=== PATIENT | female | born 1950 | race Hispanic/Latino ===

== ENCOUNTER 2024-11-03 08:32 | Observation (INO) | payer MEDICARE ==
[2024-11-03] VITALS (21 sets, daily range): BP systolic 139–182; BP diastolic 48–78; PULSE 46–66; RESP 14–18; TEMP 96.9–98.1; O2SAT 99
[~2024-11-03] VITALS: Ht 167.6 cm; Wt 98.4 kg
[~2024-11-03 08:32] MED LIST: ASPI-449 PO; GLIM4TAB36 PO; HYDR12.54 PO; METF-446 PO; PIOG45TA64 PO
[2024-11-03 09:22] LABS: BASOPHILS # (AUTO) 0.03 K/uL (0.00-0.20); BASOPHILS % (AUTO) 0.4 % (0.0-5.0); EOSINOPHILS # (AUTO) 0.19 K/uL (0.00-0.70); EOSINOPHILS % (AUTO) 2.6 % (0.0-8.0); HEMATOCRIT 29.8 % (36-48); IMMATURE GRANULOCYTE ABSOLUTE 0.05 K/uL (0-1); LYMPHOCYTES # (AUTO) 1.5 K/uL (1.0-4.8); MEAN CORPUSCULAR HEMOGLOBIN 26.1 pg (27.0-33.0); MEAN CORPUSCULAR HGB CONC 32.6 g/dL (32.0-36.0); MEAN CORPUSCULAR VOLUME 80.3 fL (79-99); MONOCYTES # (AUTO) 0.5 K/uL (0.1-1.0); MONOCYTES % (AUTO) 6.8 % (3.0-13.0); NEUTROPHILS # (AUTO) 5.1 K/uL (1.8-7.7); NEUTROPHILS % (AUTO) 69.5 % (40.0-77.0); PLATELET COUNT (AUTO) 434 K/uL (130-400); RED BLOOD CELL COUNT(AUTO) 3.71 MIL/uL (4.00-5.50); RED CELL DISTRIBUTION WIDTH 17.3 % (11.0-15.5); WHITE BLOOD COUNT (AUTO) 7.3 K/uL (4.8-10.8)
[2024-11-03 09:30] LABS: CREATININE 0.7 mg/dL (0.5-1.0); POTASSIUM 3.9 mmol/L (3.5-5.1)
--- NOTE | 2024-11-03 09:51 | EKG ---
[facility] Test Date: 2024-11-03 Test Time: 09:13:59 Pat Name: SHERYL DE SOUZA Department: [facility] Room: [facility] Gender: F Sign Poster: [id number] : 1950 Requested By: KAYLI NAVARRETE Order Number: [id number] Reading MD: Shayne Lantigua Measurements Intervals [place] Rate: 68 P: 53 AK: 221 QRS: 32 QRSD: 140 T: 4 QT: 451 QTc: 482 Interpretive Statements Sinus rhythm Prolonged AK interval Right bundle branch block No previous ECG available for comparison Electronically Signed On 11-03-2024 18:13:51 CDT by Shayne Lantigua Please click the below link to view image of tracing.
[2024-11-03] MEDS: 0.9%NACL 1000ML 1,000 ML IV ONE (10:57)
[2024-11-03] MEDS: ceFAZolin SODIUM 2 GM VIAL ONE (10:57)
[2024-11-03] MEDS ORDERED: FOLIC ACID PO (11:33)
[2024-11-03] MEDS ORDERED: ALLO100T PO (11:33)
[2024-11-03] MEDS ORDERED: FERS325 PO (11:33)
[2024-11-03] MEDS ORDERED: CYAN-37 PO (11:33)
[2024-11-03] MEDS ORDERED: CHOL100046 PO (11:33)
[2024-11-03] MEDS ORDERED: LIDOCAINE PF 100MG/5ML (2%) SYRINGE 5ML ONE (14:21)
[2024-11-03] MEDS ORDERED: dexaMETHasone SOD PHOSPHATE 10MG/ML 1ML VIAL ONE (14:21)
[2024-11-03] MEDS ORDERED: ondanSETRON 4MG INJ ONE (14:21)
[2024-11-03] MEDS ORDERED: FENTanyl CITRate PF 50 MCG/1 ML 2ML VIAL ONE ×3 (14:22→19:24)
[2024-11-03] MEDS ORDERED: NEOSTIGMINE METHYLSULFATE 1MG/ML IV ONE ×2 (14:22→19:24)
[2024-11-03] MEDS ORDERED: proPOFol 10 MG/ML 20ML VIAL IV ONE (14:22)
[2024-11-03] MEDS ORDERED: rocuRONium bROMide 10MG/1ML 5ML VL ONE (14:22)
[2024-11-03] MEDS ORDERED: SUCCINYLCHOLINE CHLORIDE 20 MG/ML 10 ML VIAL ONE (14:22)
[2024-11-03] MEDS ORDERED: GLYCOPYRROLATE 0.2 MG/ML 5 ML VIAL ONE ×2 (14:22→19:24)
[2024-11-03] MEDS ORDERED: MIDAZOLAM HCL 1 MG/ML 2ML VIAL ONE (14:23)
[2024-11-03] MEDS ORDERED: ROPivacaine 0.5% 5MG/ML 30ML ONE (14:24)
[2024-11-03] MEDS ORDERED: ceFAZolin SODIUM 1 GM VIAL ONE (14:32)
[2024-11-03] MEDS ORDERED: phenylEPHRINE HCL 10 MG/ML 1ML VIAL IV ONE (14:50)
[2024-11-03] MEDS: ceFAZolin SODIUM 2 GM VIAL IVPB ONE (16:38)
[2024-11-03] MEDS ORDERED: ePHEDrine SULFate 50 MG/ML AMPULE ONE (16:52)
[2024-11-03] MEDS ORDERED: TRANEXAMIC ACID 1000MG/10ML ONE (17:03)
[2024-11-03] MEDS ORDERED: TEMAZepam 15 MG CAPSULE PO PRN (19:30)
[2024-11-03] MEDS ORDERED: DiphenhydrAMINE HCL 50 MG/ML VIAL IVP PRN (19:30)
[2024-11-03] MEDS ORDERED: FERROUS FUMARATE 324 MG TABLET PO PRN (19:30)
[2024-11-03] MEDS ORDERED: HYDROcodone/APAP 5/325 1 TAB TABLET PO PRN (19:30)
[2024-11-03] MEDS ORDERED: DiphenhydrAMINE HCL 25 MG CAPSULE PO PRN (19:30)
[2024-11-03] MEDS: acetaMINOPHEN 100 ML ONE (19:48)
--- NOTE | 2024-11-03 19:48 | OP ---
Operative Note: DATE OF PROCEDURE: 11/03/24 SURGEON: JUDE LANE MD MARINE ENGINEERING TECHNICIANS: [Nadira Weston CFA] ANESTHESIA: [General anesthesia] ANESTHESIOLOGIST/TRAINMASTER: [Josef Bender CRNA] PREOPERATIVE DIAGNOSIS: [History comminuted bimalleolar fracture left ankle with secondary fracture blisters and skin necrosis] POSTOPERATIVE DIAGNOSIS: [Same] IMPLANTS: [DE PUY SYNTHES. Locking lateral malleolar plate with locking and nonlocking screws. Joint sparing external fixator] PROCEDURE: [Open reduction internal fixation lateral malleolus fracture. Failed attempt of percutaneous pin fixation of medial malleolus fracture. Placement of the joint sparing external fixator] ESTIMATED BLOOD LOSS: [80 mL] INDICATIONS: [The patient is a 74-year-old female with severe diabetic neuropathy that sustained in a fall several weeks ago and after ambulating for two days finally noticed a deformity of the ankle reason why she came to the hospital and was found to have an ankle fracture, displaced with subluxation. I was consulted and saw that the patient had already fracture blisters in both sides of the ankle and for this reason she was splinted and sent to a assisted for re-evaluation later on. On follow-up it was noted that some of the b listers have healed but some new ones appeared and there was an area of skin necrosis in the medial malleolar area. The patient was brought to the operating room today for possible open reduction internal fixation of trimalleolar fracture and placement of joint sparing external fixator. The procedure was explained to the patient and family, risks involved, benefits and possible c omplications and she has agreed to sign the consent form] DESCRIPTION OF PROCEDURE: [After adequate general anesthesia was achieved the patient's left lower extremity was prepped and draped in the usual manner previous cement of the tourniquet in the proximal thigh. The extremity was elevated and exsanguinated with an Esmarch bandage and the tourniquet was inflated to 350 mmHg the Esmarch band being removed. Evaluation of the ankle revealed that the patient had all the fracture blisters in the lateral aspect completely heal and in the medial aspect the blisters were healed but there was an area of necrosis in the medial malleolar area which involved a proximally 2 x 1-1/2 inches and proximal to it there was an area of healing skin with a exposed dermis healing adequately. At this point an incision was carried down the lateral aspect of the medial malleolus in a longitudinal manner and immediately we noted that the patient had a significant venous tourniquet for this reason the tourniquet was deflated. We proceeded the operation with the tourniquet and the incision was carried down to the bone opened in the fascia of the peroneal tendons muscles and this were dissected free from the distal fibula shaft. Retractors were applied and we proceeded to evaluate the fracture which was segmental and comminuted and we proceeded 1st to realign the bones and secured it with a bone clamp and once we had an adequate alignment we proceeded to apply a lateral malleolus locking plate eight hole length and after secured with a bone clamp we proceeded then to apply 2.7 locking screws and cortical screws proximally and of the malleolus we used a small locking screws, 2.0 in multiple areas obtain adequate fixation. In the middle section where there was a segmental defect we proceeded to applied through oval holes in the plate two cortical screws to provide an adequate fixation. X-rays taken revealed that the reduction has been adequate restarting the alignment of the bone. The syndesmosis was then tested under fluoroscopy and noticed it to be stable. We then proceeded to irrigate the wound copiously with the antibiotic solution and we proceeded to close the skin applying tension sutures to reapproximate the skin edges followed by closure of the subcutaneous tissue in between the tension sutures with 2-0 Vicryl inverted stitches and then the same spaces were closed with the use of mary. Then we paid attention to the medial malleolar area and with the use of the C-arm with noticed that the fragment was aligned but at the same time seemed to be flipped. We proceeded to make a small curvilinear incision distally from the skin necrosis area and then percutaneously we proceeded to capture the bony fragment and tried to fix it against the medial malleolus but this proved to be unsuccessful due to the shape of the medial malleolus fragment. At this point because of the inability to open the necrotic area I opted for abort this procedure and we will allow for the skin to heal to later on come back and do an open reduction internal fixation. The incisions carried down in the medial malleolus were then closed with 2-0 Vicryl inverted stitches and mary. Then a [employer] ankle spurring external fixator was applied, with the use of the C-arm 1st with the application of two bicortical parallel pins in the tibia shaft that were secured with the connector then we proceeded a 3rd pin with a Gabo direction going across the tip of the calcaneus and smaller pin was applied at the base of the 1st metatarsal from dorsal to plantar also bicortical. Then with the use of connectors and tubing we proceeded to secure the tibial connectors to the calcaneus and then from the calcaneus to the 1st metatarsal. Once all the connectors were tightened it the ankle was noted to be stable with a neutral ankle position. The lower extremity was then cleaned, soft dressing were applied to the ankle area and then these were protected with 4x4s and the external fixator was wrapped with the use of Remy bandages. The drapes were then removed and the patient was then transferred to her bed and taken to recovery room for follow-up by anesthesia. There were no complications during the procedure] JUDE LANE MD Nov 03, 2024 19:48
--- NOTE | 2024-11-03 19:54 | HMCIMG ---
INTRAOPERATIVE FLUOROSCOPIC GUIDANCE UP TO 1 HOUR. IMPRESSION: Intraoperative fluoroscopic guidance was provided for ORIF lateral malleolus left ankle, external fixation, which was performed by Dr. Stahl. Total fluoroscopy time was 1.4 minutes, and administered dose, 2.90 mGy. A total of 4 spot images obtained. Please refer to the orthopedic procedure note for further details.
--- NOTE | 2024-11-03 20:30 | NUR ---
ADMISSION: PT RECEIVED FROM OR VIA BED, SONS AT BEDSIDE. PT IS AWAKE/ALERT. O2 AT 2L/MIN PER NC, SPO2-97% NO RESPIRATORY DISTRESS NOTED. LEFT LOWER EXTREMITY WITH EXTERNAL FIXATOR PINS IN PLACE, AYSE BANDAGE DRY/INTACT. CAPILLARY REFILL 3-4 SECONDS, PITTING EDEMA NOTED TO LEFT FOOT, TOES WARM TO TOUCH. PT STATES SHE DOES NOT FEEL ANY SENSATION TO LEFT FOOT. LEFT FOOT ELEVATED ON PILLOW, INSTRUCTED TO KEEP ELEVATED PER DOCTOR'S ORDERS. IV INFUSING NS AT 100 ML/HR TO RIGHT WRIST, NO REDNESS, NO SWELLING, NO TENDERNESS NOTED. ORIENTED TO ROOM, SURROUNDINGS AND CALL LIGHT. S/R UP X 3, BED ALARM IN PLACE.
[2024-11-03] MEDS: INSULIN humuLIN R 100 UNIT/ML 3ML SQ SCH (21:00)
[2024-11-03] MEDS: 0.9%NACL 1000ML 1,000 ML IV SCH (21:18)
[2024-11-04] VITALS (10 sets, daily range): BP systolic 120–164; BP diastolic 51–70; PULSE 61–79; RESP 17–20; TEMP 97.5–98.2; O2SAT 98–99
[2024-11-04] MEDS: ceFAZolin SODIUM 2 GM VIAL IVP SCH (00:03)
--- NOTE | 2024-11-04 02:30 | NUR ---
SENSATION: LEFT ANKLE WITH EXTERNAL FIXATOR PINS, ELEVATED ON PILLOW. CAPILLARY REFILL < 4 SECONDS, TOES BLANCHABLE AND WARM TO TOUCH, PULSE PALPABLE UPON PALPATION. STATES SHE IS STARTING TO FEEL TINGLING AND SENSATION RETURN TO LEFT FOOT. VOICES NO PAIN/DISCOMFORTS AT THE TIME. CALL [facility] WITHIN REACH. S/R UP X 3, BED ALARM IN PLACE.
[2024-11-04] MEDS: ceFAZolin SODIUM 2 GM VIAL IVPB SCH (07:53)
[2024-11-04] MEDS: ENOXAPARIN SODIUM 40 MG/0.4 ML SYRINGE SQ SCH (07:54)
[2024-11-04 08:35] LABS: HEMATOCRIT 30.1 % (36-48); MEAN CORPUSCULAR HEMOGLOBIN 25.6 pg (27.0-33.0); MEAN CORPUSCULAR HGB CONC 30.2 g/dL (32.0-36.0); MEAN CORPUSCULAR VOLUME 84.6 fL (79-99); PLATELET COUNT (AUTO) 422 K/uL (130-400); RED BLOOD CELL COUNT(AUTO) 3.56 MIL/uL (4.00-5.50); RED CELL DISTRIBUTION WIDTH 17.2 % (11.0-15.5); WHITE BLOOD COUNT (AUTO) 9.9 K/uL (4.8-10.8)
[2024-11-04 08:43] LABS: CREATININE 0.7 mg/dL (0.5-1.0); POTASSIUM 4.4 mmol/L (3.5-5.1)
--- NOTE | 2024-11-04 11:00 | NUR ---
Spoke to HALLIE Brown, no orders noted in EMR or chart for PT from Dr Stahl. PT team to follow up in pm. Addendum: 11/04/24 at 1227 by LIAM ALANIZ PT Amended: Links added.
--- NOTE | 2024-11-04 12:05 | PN ---
Late entry. Patient seen this morning at 7:40 a.m.. Ortho postop day one. This morning the patient is awake alert and oriented her son is present in the room. She is reporting adequate pain control. Vital signs have been stable. Afebrile. Noted to have a drop in hemoglobin and hematocrit. Patient is currently asymptomatic. We will address as necessary per protocol. Voiding on her own. She has not passed gas yet. Reinforced incentive spirometry. The dressing is intact the external fixator secured with Remy bandage. Capillary refill less than three a. Assessment: Status post open reduction internal fixation lateral malleolus fracture,, failed attempt percutaneous pin fixation of medial malleolus. Placement of joint sparing external fixator. Acute postoperative blood loss anemia. Plan: Continue with Dr. Stahl protocol and discharge planning. Acute postoperative blood loss anemia addressed with the protocol as necessary. Vitals/Labs Vital Signs Date Time Temp Pulse Resp B/P (MAP) Pulse Ox O2 Delivery O2 Flow Rate FiO2 11/04/24 08:00 97.7 66 18 157/68 99 Nasal Cannula 3.0 11/04/24 03:30 28 Laboratory Tests 11/04/24 08:29 Medications Current Medications Cefazolin Sodium 2 gm STK-MED ONCE .ROUTE; Start 11/03/24 at 09:47; Stop 11/03/24 at 09:47; Status DC Sodium Chloride 1,000 ml @ As Directed STK-MED ONCE IV Last administered on 11/03/24at 10:57; Start 11/03/24 at 09:47; Stop 11/03/24 at 09:47; Status DC Lidocaine HCl 100 mg STK-MED ONCE .ROUTE; Start 11/03/24 at 14:21; Stop 11/03/24 at 14:21; Status DC Ondansetron HCl 4 mg STK-MED ONCE .ROUTE; Start 11/03/24 at 14:21; Stop 11/03/24 at 14:21; Status DC Dexamethasone Sodium Phosphate 10 mg STK-MED ONCE .ROUTE; Start 11/03/24 at 14:21; Stop 11/03/24 at 14:21; Status DC Succinylcholine Chloride 200 mg STK-MED ONCE .ROUTE; Start 11/03/24 at 14:22; Stop 11/03/24 at 14:22; Status DC Glycopyrrolate 1 mg STK-MED ONCE .ROUTE; Start 11/03/24 at 14:22; Stop 11/03/24 at 14:22; Status DC Propofol 200 mg STK-MED ONCE IV; Start 11/03/24 at 14:22; Stop 11/03/24 at 14:22; Status DC Neostigmine Methylsulfate 10 mg STK-MED ONCE IV; Start 11/03/24 at 14:22; Stop 11/03/24 at 14:22; Status DC Rocuronium [place] 50 mg STK-MED ONCE .ROUTE; Start 11/03/24 at 14:22; Stop 11/03/24 at 14:22; Status DC Fentanyl Citrate 100 mcg STK-MED ONCE .ROUTE; Start 11/03/24 at 14:22; Stop 11/03/24 at 14:23; Status DC Midazolam HCl 2 mg STK-MED ONCE .ROUTE; Start 11/03/24 at 14:23; Stop 11/03/24 at 14:24; Status DC Ropivacaine 150 mg STK-MED ONCE .ROUTE; Start 11/03/24 at 14:24; Stop 11/03/24 at 14:24; Status DC Cefazolin Sodium 1 gm STK-MED ONCE .ROUTE; Start 11/03/24 at 14:32; Stop 11/03/24 at 14:33; Status DC Phenylephrine HCl 10 mg STK-MED ONCE IV; Start 11/03/24 at 14:50; Stop 11/03/24 at 14:50; Status DC Ephedrine Sulfate 50 mg STK-MED ONCE .ROUTE; Start 11/03/24 at 16:52; Stop 11/03/24 at 16:53; Status DC Tranexamic Acid 1,000 mg STK-MED ONCE .ROUTE; Start 11/03/24 at 17:03; Stop 11/03/24 at 17:04; Status DC Cefazolin Sodium 2 gm STK-MED ONCE IVPB Last administered on 11/03/24at 16:38; Start 11/03/24 at 16:38; Stop 11/03/24 at 17:22; Status DC Cefazolin Sodium 1 gm STK-MED ONCE IRRIG Last administered on 11/03/24at 16:57; Start 11/03/24 at 16:57; Stop 11/03/24 at 17:22; Status DC Tranexamic Acid 1,000 mg STK-MED ONCE IV Last administered on 11/03/24at 16:57; Start 11/03/24 at 16:57; Stop 11/03/24 at 17:22; Status DC Fentanyl Citrate 100 mcg STK-MED ONCE .ROUTE; Start 11/03/24 at 18:15; Stop 11/03/24 at 18:19; Status DC Glycopyrrolate 1 mg STK-MED ONCE .ROUTE; Start 11/03/24 at 19:24; Stop 11/03/24 at 19:24; Status DC Neostigmine Methylsulfate 10 mg STK-MED ONCE IV; Start 11/03/24 at 19:24; Stop 11/03/24 at 19:24; Status DC Fentanyl Citrate 100 mcg STK-MED ONCE .ROUTE; Start 11/03/24 at 19:24; Stop 11/03/24 at 19:24; Status DC Sodium Chloride 1,000 ml @ 100 mls/hr Q10H IV Last administered on 11/03/24at 21:18; Start 11/03/24 at 19:30; Stop 11/04/24 at 19:29 Enoxaparin Sodium 40 mg DAILY SQ Last administered on 11/04/24at 07:54; Start 11/04/24 at 09:00; Stop 12/04/24 at 08:59 Ferrous Fumarate 324 mg DAILY PRN PO; Start 11/03/24 at 19:30; Stop 12/03/24 at 19:29 Temazepam 15 mg HS PRN PO; Start 11/03/24 at 19:30; Stop 12/03/24 at 19:29 Diphenhydramine HCl 25 mg Q6H PRN PO; Start 11/03/24 at 19:30; Stop 12/03/24 at 19:29 Diphenhydramine HCl 25 mg Q6H PRN IVP; Start 11/03/24 at 19:30; Stop 12/03/24 at 19:29 Insulin Human Regular INSULIN SLIDING SCAL... ACHS SQ; Start 11/03/24 at 21:00; Stop 12/03/24 at 20:59 Cefazolin Sodium 2 gm Q8H IVP Last administered on 11/04/24at 00:03; Start 11/03/24 at 19:30; Stop 11/04/24 at 03:31; Status DC Acetaminophen/ Hydrocodone Bitart Q4H PRN PO; Start 11/03/24 at 19:30; Stop 11/03/24 at 19:46; Status DC Acetaminophen 100 ml @ As Directed STK-MED ONCE .ROUTE Last administered on 11/03/24at 19:48; Start 11/03/24 at 19:44; Stop 11/03/24 at 19:45; Status DC Acetaminophen/ Hydrocodone Bitart 1 tab Q4H PRN PO; Start 11/03/24 at 20:00; Stop 11/08/24 at 19:59 Acetaminophen/ Hydrocodone Bitart 2 tab Q4H PRN PO; Start 11/03/24 at 20:00; Stop 11/08/24 at 19:59 Cefazolin Sodium 2 gm Q8H IVPB Last administered on 11/04/24at 07:53; Start 11/04/24 at 08:00; Stop 11/04/24 at 08:01; Status DC ROSALINDA MORAN NP Nov 04, 2024 12:05
--- NOTE | 2024-11-04 12:30 | NUR ---
[facility] CM MET WITH PT AND SON THIS MORNING, INITIAL ASSESSMENT DONE. PATIENT IS SEMI-INDEPENDENT PRIOR TO SURGERY, CURRENTLY STAYING AT [facility] SHORT TERM, PRIOR TO SON LIVES W/PT AT HOME. AT HOME PATIENT HAS A ROLLATOR WALKER, SHOWER CHAIR, CANE, WHEELCHAIR, GLUCOMETER, TAKES PO DM MED. DENIES ANY OTHER EQUIPMENT/SERVICES. FEELS SAFE AT HOME, SON ABLE TO ASSIST WITH TRANSPORTATION AND NEEDS NECESSARY. DISCUSSED MD RECOMMENDATIONS TO GO BACK TO SNF AFTER HOSPITALIZATION, PT AGREEABLE, CONSENT SIGNED MAKAYLA FOR [facility]. CM REACHED OUT TO [facility], VERIFIED PT WILL NEED REAUTH TO RETURN. CM REACHED OUT TO DR LANE RE: PT EVAL/PT RESTRICTIONS. PER MD BED TO CHAIR TRANSFER NO WEIGHT BEARING LEFT LEG AT SNF. ORDER ENTERED. [facility] ONCE APPROVED. CM TO CONTINUE TO FOLLOW UP. Addendum: 11/04/24 at 1233 by GRETA MARTINEZ LVN Amended: Links added.
[2024-11-04] MEDS: HYDROcodone/APAP 5/325 1 TAB TABLET PO PRN (21:24)
[2024-11-05 04:10] VITALS: BP 153/60; PULSE 80; RESP 18; TEMP 98.4
[2024-11-05 07:26] LABS: HEMATOCRIT 28.4 % (36-48); MEAN CORPUSCULAR HEMOGLOBIN 25.9 pg (27.0-33.0); MEAN CORPUSCULAR HGB CONC 31.7 g/dL (32.0-36.0); MEAN CORPUSCULAR VOLUME 81.6 fL (79-99); RED BLOOD CELL COUNT(AUTO) 3.48 MIL/uL (4.00-5.50); RED CELL DISTRIBUTION WIDTH 17.2 % (11.0-15.5); WHITE BLOOD COUNT (AUTO) 7.7 K/uL (4.8-10.8)
[2024-11-05 07:36] LABS: CREATININE 0.7 mg/dL (0.5-1.0); POTASSIUM 3.3 mmol/L (3.5-5.1)
[2024-11-05 08:00] VITALS: BP 131/70; PULSE 72; RESP 18; TEMP 98.4; O2SAT 96
[2024-11-05] MEDS: PoTASSium chloRIDE 20MEQ ER 20 MEQ ERTAB PO PRN (09:41)
[2024-11-05] MEDS ORDERED: PoTASSium chl 10% ELIXIR 20MEQ 20 MEQ/15 ML UDCUP PO PRN (10:00)
[2024-11-05] MEDS ORDERED: PoTASSium chloRIDE 20MEQ/100ML 100 ML IV PRN (10:00)
[2024-11-05 12:06] VITALS: BP 124/76; PULSE 79; RESP 18; TEMP 98.2
--- NOTE | 2024-11-05 12:43 | NUR ---
HIGH PLATELET COUNT AM LABS SHOWED ME THAT PLATELET COUNT FOR PATIENT WAS HIGH AT 426. NOTIFIED DR. LANE THAT PATIENT DID NOT WANT TO CONTINUE HER LOVENOX BECAUSE SHE DOES NOT LIKE SHOTS. HE SAID THAT WE COULD DISCONTINUE LOVENOX AND START ELIQUIS 2.5 MG PO BID.
[2024-11-05] MEDS: LACTULOSE 20 GM/30 ML UDCUP PO ONE (12:49)
--- NOTE | 2024-11-05 16:06 | PN ---
Postop day 2. Status post open reduction internal fixation left ankle lateral malleolus. Placement of ankle joint sparing external fixator. Vital signs stable, afebrile. The patient states that she does not like to be injected for the Lovenox that she has been receiving daily. We still awaiting for approval for the patient to go back to the half-way The patient is resting comfortable. She was able to be health to sit in the chair per physical therapy. She is nonweightbearing status in the left lower extremity. The patient is awake, alert and oriented and in no distress. The left lower extremity dressing is intact. Assessment: Status post ORIF left ankle lateral malleolus. Pending repair medial malleolar fracture. Skin necrosis medial malleolar area. Placement of external fixator. Plan: The patient is awaiting for transfer to a half-way. She is going to be evaluated by wound care service to see what options exist for her down my skin in the medial malleolus. The fracture was not able to be repaired because of the presence of the skin necrosis. I attempted to do a percutaneous fixation with the small wounds distally but the fragment seemed to be flipped and it was not possible to do the fixation. We will have to wait until the skin improves so that we can open that area and finally stabilize the fracture. Because of the fact that the patient has severe diabetic neuropathy the fixator is with the purpose to prevent her from doing weight-bearing and also to protect the pressure areas from developed ulcers. We will continue to await for the response of the insurance in reference to the transferred to the half-way. We will switch to Eliquis for anticoagulation Vitals/Labs Vital Signs Date Time Temp Pulse Resp B/P (MAP) Pulse Ox O2 Delivery O2 Flow Rate FiO2 11/05/24 12:06 98.2 79 18 124/76 99 Room Air 21 11/05/24 08:00 0 Laboratory Tests 11/05/24 07:20 Medications Current Medications Cefazolin Sodium 2 gm STK-MED ONCE .ROUTE; Start 11/03/24 at 09:47; Stop 11/03/24 at 09:47; Status DC Sodium Chloride 1,000 ml @ As Directed STK-MED ONCE IV Last administered on 11/03/24at 10:57; Start 11/03/24 at 09:47; Stop 11/03/24 at 09:47; Status DC Lidocaine HCl 100 mg STK-MED ONCE .ROUTE; Start 11/03/24 at 14:21; Stop 11/03/24 at 14:21; Status DC Ondansetron HCl 4 mg STK-MED ONCE .ROUTE; Start 11/03/24 at 14:21; Stop 11/03/24 at 14:21; Status DC Dexamethasone Sodium Phosphate 10 mg STK-MED ONCE .ROUTE; Start 11/03/24 at 14:21; Stop 11/03/24 at 14:21; Status DC Succinylcholine Chloride 200 mg STK-MED ONCE .ROUTE; Start 11/03/24 at 14:22; Stop 11/03/24 at 14:22; Status DC Glycopyrrolate 1 mg STK-MED ONCE .ROUTE; Start 11/03/24 at 14:22; Stop 11/03/24 at 14:22; Status DC Propofol 200 mg STK-MED ONCE IV; Start 11/03/24 at 14:22; Stop 11/03/24 at 14:22; Status DC Neostigmine Methylsulfate 10 mg STK-MED ONCE IV; Start 11/03/24 at 14:22; Stop 11/03/24 at 14:22; Status DC Rocuronium [place] 50 mg STK-MED ONCE .ROUTE; Start 11/03/24 at 14:22; Stop 11/03/24 at 14:22; Status DC Fentanyl Citrate 100 mcg STK-MED ONCE .ROUTE; Start 11/03/24 at 14:22; Stop 11/03/24 at 14:23; Status DC Midazolam HCl 2 mg STK-MED ONCE .ROUTE; Start 11/03/24 at 14:23; Stop 11/03/24 at 14:24; Status DC Ropivacaine 150 mg STK-MED ONCE .ROUTE; Start 11/03/24 at 14:24; Stop 11/03/24 at 14:24; Status DC Cefazolin Sodium 1 gm STK-MED ONCE .ROUTE; Start 11/03/24 at 14:32; Stop 11/03/24 at 14:33; Status DC Phenylephrine HCl 10 mg STK-MED ONCE IV; Start 11/03/24 at 14:50; Stop 11/03/24 at 14:50; Status DC Ephedrine Sulfate 50 mg STK-MED ONCE .ROUTE; Start 11/03/24 at 16:52; Stop 11/03/24 at 16:53; Status DC Tranexamic Acid 1,000 mg STK-MED ONCE .ROUTE; Start 11/03/24 at 17:03; Stop 11/03/24 at 17:04; Status DC Cefazolin Sodium 2 gm STK-MED ONCE IVPB Last administered on 11/03/24at 16:38; Start 11/03/24 at 16:38; Stop 11/03/24 at 17:22; Status DC Cefazolin Sodium 1 gm STK-MED ONCE IRRIG Last administered on 11/03/24at 16:57; Start 11/03/24 at 16:57; Stop 11/03/24 at 17:22; Status DC Tranexamic Acid 1,000 mg STK-MED ONCE IV Last administered on 11/03/24at 16:57; Start 11/03/24 at 16:57; Stop 11/03/24 at 17:22; Status DC Fentanyl Citrate 100 mcg STK-MED ONCE .ROUTE; Start 11/03/24 at 18:15; Stop 11/03/24 at 18:19; Status DC Glycopyrrolate 1 mg STK-MED ONCE .ROUTE; Start 11/03/24 at 19:24; Stop 11/03/24 at 19:24; Status DC Neostigmine Methylsulfate 10 mg STK-MED ONCE IV; Start 11/03/24 at 19:24; Stop 11/03/24 at 19:24; Status DC Fentanyl Citrate 100 mcg STK-MED ONCE .ROUTE; Start 11/03/24 at 19:24; Stop 11/03/24 at 19:24; Status DC Sodium Chloride 1,000 ml @ 100 mls/hr Q10H IV Last administered on 11/03/24at 21:18; Start 11/03/24 at 19:30; Stop 11/04/24 at 19:29; Status DC Enoxaparin Sodium 40 mg DAILY SQ Last administered on 11/05/24at 09:41; Start 11/04/24 at 09:00; Stop 11/05/24 at 12:56; Status DC Ferrous Fumarate 324 mg DAILY PRN PO; Start 11/03/24 at 19:30; Stop 12/03/24 at 19:29 Temazepam 15 mg HS PRN PO; Start 11/03/24 at 19:30; Stop 12/03/24 at 19:29 Diphenhydramine HCl 25 mg Q6H PRN PO; Start 11/03/24 at 19:30; Stop 12/03/24 at 19:29 Diphenhydramine HCl 25 mg Q6H PRN IVP; Start 11/03/24 at 19:30; Stop 12/03/24 at 19:29 Insulin Human Regular INSULIN SLIDING SCAL... ACHS SQ; Start 11/03/24 at 21:00; Stop 12/03/24 at 20:59 Cefazolin Sodium 2 gm Q8H IVP Last administered on 11/04/24at 00:03; Start 11/03/24 at 19:30; Stop 11/04/24 at 03:31; Status DC Acetaminophen/ Hydrocodone Bitart Q4H PRN PO; Start 11/03/24 at 19:30; Stop 11/03/24 at 19:46; Status DC Acetaminophen 100 ml @ As Directed STK-MED ONCE .ROUTE Last administered on 11/03/24at 19:48; Start 11/03/24 at 19:44; Stop 11/03/24 at 19:45; Status DC Acetaminophen/ Hydrocodone Bitart 1 tab Q4H PRN PO Last administered on 11/04/24at 21:24; Start 11/03/24 at 20:00; Stop 11/08/24 at 19:59 Acetaminophen/ Hydrocodone Bitart 2 tab Q4H PRN PO; Start 11/03/24 at 20:00; Stop 11/08/24 at 19:59 Cefazolin Sodium 2 gm Q8H IVPB Last administered on 11/04/24at 07:53; Start 11/04/24 at 08:00; Stop 11/04/24 at 08:01; Status DC Potassium Chloride 100 ml @ 100 mls/hr AD PRN IV; Start 11/05/24 at 10:00; Stop 12/05/24 at 09:59 Potassium Chloride 20 meq AD PRN PO; Start 11/05/24 at 10:00; Stop 12/05/24 at 09:59 Potassium Chloride 20 meq AD PRN PO Last administered on 11/05/24at 12:49; Start 11/05/24 at 10:00; Stop 12/05/24 at 09:59 Lactulose 20 gm ONCE ONCE PO Last administered on 11/05/24at 12:49; Start 11/05/24 at 12:30; Stop 11/05/24 at 12:35; Status DC Apixaban 2.5 mg BID PO; Start 11/05/24 at 21:00; Stop 12/05/24 at 20:59 Allopurinol 50 mg DAILY PO; Start 11/06/24 at 09:00; Stop 12/06/24 at 08:59 Home Med (Cholecalciferol (Vitamin D3) 25 MCG) DAILY PO; Start 11/06/24 at 09:00; Stop 12/06/24 at 08:59 Ferrous Sulfate 325 mg DAILY PO; Start 11/06/24 at 09:00; Stop 12/06/24 at 08:59 Folic Acid 1 mg DAILY PO; Start 11/06/24 at 09:00; Stop 12/06/24 at 08:[address] MD Nov 05, 2024 16:06
[2024-11-05 16:30] VITALS: BP 167/68; PULSE 76; RESP 18; TEMP 98.4
--- NOTE | 2024-11-05 17:01 | NUR ---
SNF Auth Escalation Emailed: Sherry Platt <[email or web address]>; Silverio Oconnor <[email or web address]>; Randi Chinchilla <[email or web address]>; Devorah Barboza <[email or web address]>; Juli Patterson ([facility]) <[email or web address]>; [email or web address]. Provided patient's name, , and Policy Number. Email stated, "Auth Follow-up, Patient below was an elective TJR. We are pending SNF placement. Patient is currently a 2 day OBS. Is there any chance we will receive auth today? Patient is ready to discharge. @Juli Patterson ([facility]) is the CM and [email or web address] is the clinical liaison for [place]. Addendum: 11/05/24 at 1702 by SKIP CHAMORRO CM Amended: Links added.
--- NOTE | 2024-11-05 17:25 | NUR ---
"[facility] approval [facility] Silverio [facility], [facility] has approval. This was approved today [id number] and called in to Nenita in admissions [phone]. Silverio Oconnro RN Lead Clinical Review Nurse, Utilization Management [place], [place] Remote Preferred Contact Teams or [phone] [email or web address] | [email or web address] Notified [facility] who states they have approval and will notify the building to be expecting the patient."
[2024-11-05 20:00] VITALS: BP 183/73; PULSE 75; RESP 20; TEMP 98
[2024-11-05] MEDS: APIXaban 2.5 MG TABLET PO SCH (21:13)
[2024-11-06] VITALS (8 sets, daily range): BP systolic 123–164; BP diastolic 32–77; PULSE 45–77; RESP 16–18; TEMP 97.5–98.7; O2SAT 97
[2024-11-06] MEDS ORDERED: ACET-3859 PO (00:07)
[2024-11-06] MEDS ORDERED: DOCU100T PO (00:07)
[2024-11-06] MEDS ORDERED: ATOR40TA71 PO (00:07)
[2024-11-06] MEDS ORDERED: CARV6.25 PO (00:07)
[2024-11-06] MEDS ORDERED: CETI5TAB12 PO (00:07)
[2024-11-06] MEDS ORDERED: FLUT15.845 NS (00:07)
[2024-11-06] MEDS ORDERED: HYDR12.54 PO (00:07)
[2024-11-06] MEDS ORDERED: ENOX40DI8 SQ (00:07)
[2024-11-06] MEDS: fluTICasone proPIONate 50MCG/SPRAY 16 GM BOTTLE EN SCH (09:00)
[2024-11-06] MEDS: (Cholecalciferol (Vitamin D3) 25 MCG) PO SCH (09:00)
[2024-11-06] MEDS: FERROUS SULFATE 325 MG TABLET.DR PO SCH (09:54)
[2024-11-06] MEDS: ceTIRIzine HCL 5 MG TABLET PO SCH (09:54)
[2024-11-06] MEDS: carVEDIlol 6.25 MG TABLET PO SCH (09:54)
[2024-11-06] MEDS: doCUSate SODIUM 100 MG CAP PO SCH (09:54)
[2024-11-06] MEDS: hydroCHLOROthiazide 25 MG TABLET PO SCH (09:55)
[2024-11-06] MEDS: alloPURInol 100 MG TABLET PO SCH (09:55)
[2024-11-06] MEDS: FOLic ACID 1 MG TABLET PO SCH (09:55)
--- NOTE | 2024-11-06 11:25 | NUR ---
INFORMED DR COLLAZO OF CONSULTATION
[2024-11-06] MEDS: acetaMINOPHEN 325 MG TAB PO PRN (11:45)
--- NOTE | 2024-11-06 11:48 | NUR ---
[facility] Consult: Patient assessed by wound healing team. See wound assessment. Assessment and recommendations provided to primary nurse. Education provided. Wound care done. Addendum: 11/06/24 at 1438 by EMEKA LINDER RN RN/ Amended: Links added.
[2024-11-06] MEDS: ENOXAPARIN SODIUM 40 MG/0.4 ML SYRINGE SQ SCH (11:50)
[2024-11-06] MEDS: HONEY 1 APPL/ML TUBE TP STA (12:44)
--- NOTE | 2024-11-06 12:47 | NUR ---
CLARIFICATION MADE WITH DR LANE , PER DR LANE DOES NOT WANT PT ON LOVENOX ANYMORE DUE TO PATIENT PREFERENCE OF NOT WANTING TO GET POKED AND BE ON ELIQUIS INSTEAD . ORDER CHANGED
[2024-11-06] MEDS: LACTULOSE 20 GM/30 ML UDCUP PO PRN (13:18)
[2024-11-06] MEDS: HYDROcodone/APAP 5/325 1 TAB TABLET PO PRN (13:18)
[2024-11-06] MEDS: ondanSETRON 4MG TABLET PO PRN (13:50)
[2024-11-06] MEDS ORDERED: APIX2.5T PO (15:56)
[2024-11-06] MEDS ORDERED: HONE44PA TP (15:56)
--- NOTE | 2024-11-06 16:14 | DS ---
DISCHARGE SUMMARY [ DATE OF ADMISSION: 11/03/2024 DATE OF DISCHARGE: 11/06/2024 FINAL DIAGNOSIS: Comminuted bimalleolar ankle fracture, displaced, with secondary skin blisters and necrosis. Severe diabetic neuropathy. SURGICAL PROCEDURES: On 11/03/2024 open reduction internal fixation lateral malleolus fracture. Failed attempt of percutaneous screw fixation of medial malleolus fracture. Placement of ankle joint sparing external fixator left lower extremity SUMMARY OF HISTORY AND PHYSICAL: The patient is a 74-year-old female patient that I saw initially several weeks ago in this hospital for a consultation of an ankle fracture. On my evaluation of the time it was found that the patient was elderly diabetic female that has a file and two days before the admission and has been walking on the affected extremity without any problem because of the lack of pain. Later on she noticed that the swelling and deformity reason why she came to the hospital. She was found to have a bimalleolar ankle fracture with subluxation and also with the finding of severe blisters to the medial and lateral aspect of the ankle because of the significant edema. At that time it was considered that the patient's was not a surgical candidate and she was placed in the splint and after few days sent to the [facility] to wait until blister lesions have healed to proceeded then with the internal fixation of the ankle fracture. The patient presented to the clinic a week later and it was found that the skin blisters in the lateral aspect has healed but the medial aspect have progress and become worse and one area just over the fracture site in the medial malleolus seemed to be necrotic. The patient was scheduled then for surgery and brought to the hospital for treatment. Medical history positive for essential hypertension, acute anemia, diabetes mellitus, kidney disease, obesity. Diabetic neuropathy. Surgical history was negative Allergies: No known drug allergies Social history: The patient denies any use of tobacco alcohol. Retired HOSPITAL COURSE: The patient was admitted to the hospital and taken to the operating room the same day where it was noted that the blisters in the lateral malleolus have heel but the medial malleolar fracture area of skin necrosis even though had improved still was of significant size to prevent any direct approach. We proceeded with the open reduction internal fixation of the lateral malleolus, procedure went uneventful. An attempt was done to put percutaneous screw fixation by making a small incisions distal to the necrotic area but this was not possible. X-rays seemed to show that the fragment is flipped not allowing us to reduce it with this type of procedure for this reason we aborted the medial malleolus fixation. The patient was then placed in an ankle sparing external fixator to stabilize the joint while the skin area is treated by wound care services. Postoperatively the patient remained hemodynamically stable and afebrile. She was maintained on anticoagulation and bedrest with transferred to chair nonweightbearing. On postop day 2. The patient was accepted to be t [facility]ansferred to [facility] facility but we opted to wait another day to allow for the wound care service to evaluate the patient. On postop day 3. The patient is well, wound care service evaluate her and made recommendations for the wound care and as per the patient gave her a good prognosis for the affected skin area. The patient has been dismissed at this time. CONDITION ON DISCHARGE: Guarded DISPOSITION: The patient will be dismissed to a [facility] facility. She is to continue nonweightbearing in the affected extremity with only [id number] transfers and imbedded exercise program. The patient instructions for the wound care has been given by the wound care nurse and then we will continue following up. I will follow the patient in the office in two weeks to assess the wound as well as the status of the external fixator.] JUDE LANE MD Nov 06, 2024 16:14
--- NOTE | 2024-11-06 18:40 | NUR ---
DISCHARGE INSTRUCTION PROVIDED TO PATIENT , WAS ASSISTED WITH WOUND CARE TODAY BY WOUND CARE NURSE. FOOT WARM , PEDAL PULSE PRESENT . CAPILLARY REFILL LESS THAN 3 SEC . . DC INSTRUCTIONS PROVIDED TO PATIENT , PATIENT VERBALIZED UNDERSTANDING . REPORT GIVEN TO FABRICE CEDEÑO FROM [facility] .. EMS WAS CALLED ,SPOKE WITH MOLLY.
--- NOTE | 2024-11-06 19:25 | NUR ---
DISCHARGE DISCHARGE TO [facility]IA EMS , PATIENTS SON AT BEDSIDE, PERSONAL BELONGINGS WITH PATIENTS SON, NO C/O PAIN AT TIME OF DISCHARGE
[2024-11-06] MEDS ORDERED: APIXaban 2.5 MG TABLET PO SCH (21:00)
[2024-11-06] MEDS ORDERED: atorVAStatin 40 MG TABLET PO SCH (21:00)
[2024-11-07] MEDS ORDERED: HONEY 1 APPL/ML TUBE TP SCH (09:00)
== END 2024-11-06 19:25 ==
LOC: DAH 08:32 → DAHIP 08:33 → DAH 08:33 → 4AH 20:17
PROVIDERS: ADMIT Orthopaedic Surgery; ATTEND Orthopaedic Surgery
DX: S82.842A Displaced bimalleolar fracture of left lower leg, initial encounter for closed fracture (principal); E11.40 Type 2 diabetes mellitus with diabetic neuropathy, unspecified; E11.52 Type 2 diabetes mellitus with diabetic peripheral angiopathy with gangrene; I10 Essential (primary) hypertension; J45.909 Unspecified asthma, uncomplicated; N17.9 Acute kidney failure, unspecified; E66.9 Obesity, unspecified; D64.9 Anemia, unspecified; Z79.899 Other long term (current) drug therapy; Z98.890 Other specified postprocedural states; W18.39XA Other fall on same level, initial encounter; Y93.89 Activity, other specified; Y92.89 Other specified places as the place of occurrence of the external cause; Y99.8 Other external cause status
CPT/HCPCS: 93005; 27792; 64445; 64447; 80048 ×3; 85025; 82948 ×14; 36415 ×3; 73610; 96372 ×3; 96365; 96366; 85027 ×2; 97161; 97530 ×10; J1815; Q0162; C1713 ×13; G0378 ×72; Q4051; A4223 ×2; C1769; A4663; J7120; A4649; J3010 ×3; J0690 ×6; J3490 ×6; J1100; J0330; J7030; J2003; J2250; J2704; J2405; J2710 ×2; J2795; J2371; A6223; A4930 ×2; A4215; A4222; A4221; A4216; A6450; J1650 ×3

== ENCOUNTER 2025-01-09 15:59 | Emergency (ER) | payer MEDICARE, MEDICAID ==
[~2025-01-09] VITALS: Ht 167.6 cm; Wt 93.0 kg
[~2025-01-09 15:59] MED LIST changes: +ACET-3859 PO; +ALLO100T PO; +APIX2.5T PO; -ASPI-449 PO; +ATOR40TA71 PO; +CARV6.25 PO; +CETI5TAB12 PO; +CHOL100046 PO; +CYAN-37 PO; +DOCU100T PO; +FERS325 PO; +FLUT15.845 NS; +FOLIC ACID PO; -GLIM4TAB36 PO; +HONE44PA TP; -METF-446 PO; -PIOG45TA64 PO
--- NOTE | 2025-01-09 16:42 | ERN ---
ED Note History of Present Illness Stated Complaint: LEFT FOOT Chief Complaint: FOOT INJURY/PAIN Time Seen by MD: 16:03 Dictation: PATIENT IS A 74-YEAR-OLD FEMALE WITH A AN EXTERNAL FIXATOR ON THE LEFT ANKLE THAT IS BLEEDING FROM THE MEDIAL DISTAL SCREW. SHE HAS NO PAIN. SHE STATES ONSET WAS YESTERDAY WHEN SHE WENT TO THE DOCTOR AND HAD HER FOOT DOWN. SHE STATES SHE KNOW SHE SUPPOSED TO KEEP IT ELEVATED HOWEVER SHE WAS ABLE TO YESTERDAY BECAUSE SHE HAD TO GO TO THE DOCTOR. SHE UNDERWENT INTERNAL FIXATION BY DR. BONILLA 11/03 FOR COMMINUTED BIMALLEOLAR FRACTURE. NO PAIN AT THIS TIME NO FEVER NO CHILLS Allergies: Coded Allergies: No Known Drug Allergies (Unverified Allergy, Unknown, 10/19/24) Home Meds Active Scripts Honey (Medihoney) 100 % Paste..ml., 5 APPL TP DAILY for WOUND CARE for 60 Days, #5 TUBE APPLY IN FINE LAYER OVER OPEN WOUND DAILY UNTIL HEALED Prov:JUDE LANE MD 11/06/24 Apixaban (Eliquis) 2.5 Mg Tablet, 2.5 MG PO BID for DVT PROPHYLAXIS for 30 Days, #60 TAB Prov:JUDE LANE MD 11/06/24 Reported Medications Fluticasone Propionate (Fluticasone Propionate) 50 Mcg/Actuation Pullman.susp, 2 SPRAY NS DAILY, #16 GM 0 Refills 11/06/24 Hydrochlorothiazide (Hydrochlorothiazide) 12.5 Mg Tablet, 12.5 MG PO DAILY, TAB 11/06/24 Acetaminophen (Acetaminophen) 325 Mg Tablet, 1 TAB PO Q6HPRN PRN for pain or fever for 24 Days, #100 TAB 0 Refills 11/06/24 Atorvastatin Calcium (Atorvastatin Calcium) 40 Mg Tablet, 1 TAB PO HS for 30 Days, #30 TAB 0 Refills 11/06/24 Carvedilol (Carvedilol) 6.25 Mg Tablet, 1 TAB PO BID for 30 Days, #60 TAB 0 Refills 11/06/24 Cetirizine HCl (Cetirizine HCl) 5 Mg Tablet, 1 TAB PO DAILY for allergy symptoms for 30 Days, #30 TAB 0 Refills 11/06/24 Docusate Sodium (Docusate Sodium) 100 Mg Tablet, 1 TAB PO DAILY for 30 Days, #60 TAB 0 Refills 11/06/24 Cholecalciferol (Vitamin D3) (Vitamin D3) 25 Mcg (1000 Unit) Capsule, 25 MCG PO DAILY, CAP 11/03/24 Cyanocobalamin (Vitamin B-12) (B-12) 1,000 Mcg Tablet, 1000 MCG PO DAILY, TAB 11/03/24 Ferrous Sulfate (Ferrous Sulfate) 325 Mg (65 Mg Iron) Ectab, 325 MG PO TID, TAB.EC 11/03/24 [Folic Acid] No Conflict Check, 1 MG PO DAILY 11/03/24 Allopurinol (Allopurinol) 100 Mg Tablet, 50 MG PO DAILY, TAB 11/03/24 Past Medical History Past Medical History: Diabetes-Type II, High Cholesterol, Hypertension Surgical History: Other Surgical History Other: left History: Not Applicable RN Note Reviewed/Agreed w/PFSH: Yes Review of System Dictation CONSTITUTIONAL: NEGATIVE EXCEPT FOR HPI HEAD/FACE: NEGATIVE EXCEPT FOR HPI EENT: NEGATIVE EXCEPT FOR HPI RESPIRATORY: NEGATIVE EXCEPT FOR HPI GASTROINTESTINAL/ABDOMINAL: NEGATIVE EXCEPT FOR HPI GENITOURINARY: NEGATIVE EXCEPT FOR HPI MUSCULOSKELETAL: NEGATIVE EXCEPT FOR HPI BLEEDING FROM THE DISTAL LEFT SCREW FROM AN INTERNAL FIXATOR ANKLE INTEGUMENTARY: NEGATIVE EXCEPT FOR HPI NEUROLOGICAL/PSYCH: NEGATIVE EXCEPT FOR HPI HEMATOLOGIC/LYMPHATIC: NEGATIVE EXCEPT FOR HPI ALL SYSTEMS NEGATIVE, EXCEPT NOTED ABOVE. 13 POINT REVIEW OF SYSTEMS ASSESSED AND ALL NEGATIVE EXCEPT FOR ABOVE. Initial Vital Sign VS Vital Signs Date Time Temp Pulse Resp B/P (MAP) Pulse Ox O2 Delivery O2 Flow Rate FiO2 01/09/25 16:04 98.2 72 16 99/29 97 Room Air 0 01/09/25 16:08 21 Physical Exam Dictation VITAL SIGNS REVIEWED GENERAL APPEARANCE: ALERT, ORIENTED X 3, NO ACUTE DISTRESS, WELL DEVELOPED, NOURISHED. NO PAIN HEAD AND FACE: NON-TRAUMATIC. EYES: PERRL, PINK CONJUNCTIVAS, EYELID NO TRAUMA, ANTERIOR CHAMBER WITH ARCUS SENILIS. EARS: PINNAS INTACT AND NO SIGNS OF TRAUMA OR ERYTHEMA EAR CANALS CLEAR AND NO DISCHARGE TM NO ERYTHEMA NOSE: NO DISCHARGE, NO BLEEDING. OROPHARYNX: MOUTH NORMAL, TONGUE PINK, PHARYNX CLEAR,NO ERYTHEMA, TONSILS NO EXUDATES, NO ABSCESSES NOTED, MUCOUS MEMBRANE MOIST NECK: SUPPLE, NON-TENDER, NO THYROMEGALY, NO MASSES, NO JVD, NO BRUITS BREAST:DEFERRED CHEST:NO TENDERNESS, NO CREPITUS, NO PARADOXICAL MOVEMENT, NO RETRACTIONS LUNGS:CLEAR, WELL-VENTILATED, SYMMETRIC, NO RALES, NO WHEEZING, NO RHONCHI, NO STRIDOR, GOOD BREATH SOUNDS BILATERALLY HEART: REGULAR RATE, REGULAR RHYTHM, NO MURMUR, NO GALLOPS VASCULAR: NO PERIPHERAL EDEMA, ABDOMEN: SOFT, POSITIVE BOWEL SOUNDS, NONDISTENDED, NO GUARDING, NONTENDER, NO REBOUND, NO MASSES NO HEPATOMEGALY, NO SPLENOMEGALY, NO MINA'S SIGN, NO HERNIAS. RECTAL: DEFERRED GENITAL: DEFERRED NEUROLOGICAL: NORMAL SPEECH, MOTOR FUNCTION INTACT, SENSORY FUNCTION INTACT MUSCULOSKELETAL: NECK NONTENDER, FULL RANGE OF MOTION, BACK NONTENDER, FULL RANGE OF MOTION, EXTREMITIES: NONTENDER, FULL RANGE OF MOTION EXTERNAL FIXATOR IN PLACE TO LEFT ANKLE WITH DRESSING. SCANT TERRY BLOOD FROM THE DISTAL MEDIAL SCREW. NEUROVASCULAR CMS INTACT SKIN: COLOR PINK, DRY, NO TURGOR, NO RASH, NO LACERATIONS, NO ABRASIONS, NO CONTUSIONS. LYMPHATIC: DEFERRED Results (Laboratory/Radiology) Laboratory/Radiology Laboratory Tests Test 01/09/25 17:11 White Blood Count 8.3 K/uL (4.8-10.8) Red Blood Count 3.88 MIL/uL (4.00-5.50) L Hemoglobin 9.9 g/dL (12.0-16.0) L Hematocrit 31.5 % (36-48) L Mean Corpuscular Volume 81.2 fL (79-99) Mean Corpuscular Hemoglobin 25.5 pg (27.0-33.0) L Mean Corpuscular Hemoglobin Concent 31.4 g/dL (32.0-36.0) L Red Cell Distribution Width 17.1 % (11.0-15.5) H Platelet Count 403 K/uL (130-400) H Mean Platelet Volume 9.7 fL (7.5-10.5) Immature Granulocyte % (Auto) 0.4 % (0-1) Neutrophils (%) (Auto) 60.9 % (40.0-77.0) Lymphocytes (%) (Auto) 29.3 % (21.0-51.0) Monocytes (%) (Auto) 7.0 % (3.0-13.0) Eosinophils (%) (Auto) 1.9 % (0.0-8.0) Basophils (%) (Auto) 0.5 % (0.0-5.0) Neutrophils # (Auto) 5.1 K/uL (1.8-7.7) Lymphocytes # (Auto) 2.4 K/uL (1.0-4.8) Monocytes # (Auto) 0.6 K/uL (0.1-1.0) Eosinophils # (Auto) 0.16 K/uL (0.00-0.70) Basophils # (Auto) 0.04 K/uL (0.00-0.20) Absolute Immature Granulocyte (auto 0.03 K/uL (0-1) Nucleated Red Blood Cells 0.0 % (0.0-0.19) Sodium Level 135 mmol/L (136-145) L Potassium Level 3.7 mmol/L (3.5-5.1) Chloride Level 100 mmol/L (101-111) L Carbon Dioxide Level 30 mmol/L (21-32) Blood Urea Nitrogen 20 mg/dL (7-18) H Creatinine 1.2 mg/dL (0.5-1.0) H Glomerular Filtration Rate Calc 48 mL/min (>90) Random Glucose 119 mg/dL (70-105) H Total Calcium 8.8 mg/dL (8.5-10.1) Labs Reviewed?: Yes ED Course ED Course Orders Procedure Category Date Status Time Cbc With Differential LAB 01/09/25 Complete 16:40 Basic Metabolic Panel LAB 01/09/25 Complete 16:40 Vital Signs Date Time Temp Pulse Resp B/P (MAP) Pulse Ox O2 Delivery O2 Flow Rate FiO2 01/09/25 16:08 98.2 72 16 99/29 97 Room Air* 0 21 01/09/25 16:04 98.2 72 16 99/29 97 Room Air 0 1835/LABS AND NORMAL HEMODYNAMICALLY STABLE.CO WE WILL FOLLOW UP WITH 1929/spoke with and reviewed labs. He said okay to discharge patient home to follow up with him next Saturday in his office and to keep her leg elevated Medical Decision Making MDM 1930 MDM: Differential diagnosis: Anemia/infection Rationale: Tests considered and ordered secondary to shared decision making include: CBC/labs Previous outside records reviewed: Old ER visits. Risk of complication and/or morbidity or mortality of patient management: None Medications-Per medication reconciliation Need for hospitalization: Patient does not meet criteria for hospitalization. No Need for emergency major/minor surgery: No There are no social concerns with this patient. Prescription drug management none Prescriptions will include symptomatic care Patient's prior external medical records from other ER visits were reviewed by me as indicated. Prior testing and results from previous visits were reviewed. Prior tests were taken into account with medical decision making and resource utilization, independent historian/historians were used to obtain complete medical history. I independently interpreted the test that were performed, results were reviewed by me and considered findings on radiology if ordered. Medical management and examination interpretation discussions were had by me with other qualified healthcare professionals as indicated for the patient's care. DX & DISP Disposition: Discharge Departure Impression: Primary Impression: Surgical site reaction Additional Impressions: Chronic anemia, Stage 3 chronic kidney disease, Obesity Condition: Stable Additional Instructions: Follow-up with primary care provider in 1 to 2 days. Take medications as directed here in the emergency room. Okay to continue home medications unless otherwise discussed during your visit in the emergency room today. Return to your nearest emergency room if symptoms worsen or if there is no improvement. Call 911 if you need immediate assistance. Take Tylenol or Motrin over-the-co unter as needed and if no contraindications are present. Increase oral hydration. A wound culture or urine culture was ordered here in the emergency room department please follow-up with primary care provider and advise them to get repeat ports from our facility. If you had any Remy wrap/splints that were applied here, please do not remove them until you see your primary care or specialty. Keep left leg elevated at all times. Continue all medications and treatments from your orthopedic surgeon and follow up with next Saturday or Saturday call for an appointment. Referrals: AZAEL FREEMAN DO (PCP) JUDE LANE MD Time of Disposition: 19:34 I have reviewed the case, and I agree with, Diagnosis and Plan BALJEET CRUZ NP Jan 09, 2025 16:42
--- NOTE | 2025-01-09 17:10 | NUR ---
PT HAS EXTERNAL FIXATOR TO LEFT ANKLE PLACED BY DR. LANE. PT INITALLY STATED BLEEDING ONSET YESTERDAY. HOWEVER, ON FURTHER QUESTIONING STATES SHE WAS ADVISED BY HOME HEALTH THAT WOUND WAS PRESENTING WITH DISACHRGE SINCE SATURDAY. PT STATES SHE WAS ADVISED SHE WOULD GET A HOME VISIT ON SATURDAY AND AGAIN ON SATURDAY, BY PCP OR HOME HEALTH NURSE, BUT THEY NEVER CAME. PT CAME TODAY FOR EVALUATION SHE DOES NOT WOUND TO BECOME INFECTED SHE JUST RECENTLY HAD INTERNAL FIXATOR PLACED.
[2025-01-09 17:20] LABS: IMMATURE GRANULOCYTE ABSOLUTE 0.03 K/uL (0-1); NUCLEATED RED BLOOD CELLS 0.0 % (0.0-0.19); PLATELET COUNT (AUTO) 403 K/uL (130-400); RED BLOOD CELL COUNT(AUTO) 3.88 MIL/uL (4.00-5.50); RED CELL DISTRIBUTION WIDTH 17.1 % (11.0-15.5); WHITE BLOOD COUNT (AUTO) 8.3 K/uL (4.8-10.8)
[2025-01-09 17:26] LABS: CREATININE 1.2 mg/dL (0.5-1.0); GLOMERULAR FILTR. RATE CALC 48.0 mL/min (>90); GLUCOSE,RANDOM 119.0 mg/dL (70-105); SODIUM SERUM 135.0 mmol/L (136-145); UREA NITROGEN, BLOOD 20.0 mg/dL (7-18)
[2025-01-09 19:34] VITALS: BP 105/55; PULSE 78; RESP 18; TEMP 98.2; O2SAT 98
== END 2025-01-09 19:55 | disposition home or self-care (01) ==
LOC: EDH 15:59
DX: T81.49XA Infection following a procedure, other surgical site, initial encounter (principal); D64.9 Anemia, unspecified; I12.9 Hypertensive chronic kidney disease with stage 1 through stage 4 chronic kidney disease, or unspecified chronic kidney disease; E11.22 Type 2 diabetes mellitus with diabetic chronic kidney disease; N18.30 Chronic kidney disease, stage 3 unspecified; E66.9 Obesity, unspecified; E78.00 Pure hypercholesterolemia, unspecified; Z79.01 Long term (current) use of anticoagulants; Z79.899 Other long term (current) drug therapy; Z68.33 Body mass index [BMI] 33.0-33.9, adult
CPT/HCPCS: 36415; 80048; 85025; 99283

== ENCOUNTER → 2025-01-12 | Outpatient (CLI) | payer OTHER, MEDICAID | END | disposition home or self-care (01) | LOC: LAB 11:44 | PROVIDERS: ATTEND Nurse Practitioner | DX: T81.89XA Other complications of procedures, not elsewhere classified, initial encounter (principal); Y92.89 Other specified places as the place of occurrence of the external cause; I12.9 Hypertensive chronic kidney disease with stage 1 through stage 4 chronic kidney disease, or unspecified chronic kidney disease; Z79.899 Other long term (current) drug therapy | CPT/HCPCS: 87070; 87076; 87086; 87186; 87205 ==